=== PATIENT | female | born 1945 | race Caucasian/White ===

== ENCOUNTER 2016-07-07 11:43 | Outpatient (CLI) ==
[2016-07-07 13:19] LABS: FLU INTERNAL QC INTERNAL QC VALID; RAPID FLU A POSITIVE (NEGATIVE); RAPID FLU B NEGATIVE (NEGATIVE)
== END 2016-07-07 11:44 | disposition home or self-care (01) ==
LOC: LAB 11:43
PROVIDERS: ATTEND Nurse Practitioner Family
DX: R50.9 Fever, unspecified (principal)
CPT/HCPCS: 87651; 87804; 87880

== ENCOUNTER 2016-08-05 09:39 | Outpatient (CLI) ==
[2016-08-05 13:16] LABS: BASOPHILS # (AUTO) 0.1 K/uL (0-0.2); BASOPHILS % (AUTO) 0.9 % (0.0-3.0); EOSINOPHILS # (AUTO) 0.6 K/ul (0.0-0.7); EOSINOPHILS % (AUTO) 8.3 % (0.0-7.0); HEMATOCRIT 42.6 % (37.0-47.0); IMMATURE GRANULOCYTE % (AUTO) 0.2 % (0.0-5.0); LYMPHOCYTES # (AUTO) 2.4 K/uL (0.60-3.4); LYMPHOCYTES % (AUTO) 35.7 (10.0-50.0); MEAN CORPUSCULAR HEMOGLOBIN 28.9 pg (27.0-31.0); MEAN CORPUSCULAR HGB CONC 32.9 (31.8-35.4); MONOCYTES # (AUTO) 0.5 K/uL (0.4-2.0); MONOCYTES % (AUTO) 7.4 (0-10); NEUTROPHILS # (AUTO) 3.2 K/ul (2.0-6.9); NEUTROPHILS % (AUTO) 47.5; PLATELET COUNT 183 10^3/uL (140-440); RED BLOOD COUNT 4.84 10^6/ul (4.20-5.40); WHITE BLOOD COUNT 6.66 K/ul (4.6-10.2)
[2016-08-05 13:20] LABS: BILIRUBIN,URINE Negative (NEGATIVE); KETONES,URINE Negative (NEGATIVE); LEUKOCYTE ESTERASE ,URINE 1+ (NEGATIVE); NITRITE,URINE Negative (NEGATIVE); PROTEIN,URINE Negative (NEGATIVE); URINE, BLOOD Negative (NEGATIVE)
[2016-08-05 13:21] LABS: ADD URINE MICROSCOPIC YES
[2016-08-05 13:37] LABS: BACTERIA,URINE 2+ (NOT PRESENT)
[2016-08-05 13:38] LABS: BILIRUBIN,TOTAL 0.81 mg/dL (0.00-1.20); CALCIUM 9.2 mg/dL (8.2-10.2); CREATININE 0.83 mg/dL (0.60-1.30); POTASSIUM 3.9 mmol/L (3.5-5.10); TOTAL PROTEIN 7.2 g/dL (5.8-8.1)
[2016-08-05 13:44] LABS: CHOL/HDL RATIO 3.7 (4.5-5.5)
[2016-08-05 14:21] LABS: ALBUMIN 3.7 g/dL (3.4-5.0); ALBUMIN/GLOBULIN RATIO 1.06; ANION GAP 12.9; BUN/CREATININE RATIO 12.04
== END 2016-08-05 09:40 | disposition home or self-care (01) ==
LOC: LAB 09:39
PROVIDERS: ATTEND Emergency Medicine
DX: E11.51 Type 2 diabetes mellitus with diabetic peripheral angiopathy without gangrene (principal); E11.9 Type 2 diabetes mellitus without complications; I10 Essential (primary) hypertension; Z79.899 Other long term (current) drug therapy
CPT/HCPCS: 36415; 80053; 80061; 81001; 83036; 85025; 87086; 87186

== ENCOUNTER 2016-12-01 11:32 | Outpatient (CLI) ==
[2016-12-01 12:50] LABS: BASOPHILS # (AUTO) 0.1 K/uL (0-0.2); BASOPHILS % (AUTO) 1.1 % (0.0-3.0); EOSINOPHILS # (AUTO) 0.4 K/ul (0.0-0.7); HEMATOCRIT 41.2 % (37.0-47.0); HEMOGLOBIN 14.1 g/dl (12.0-16.0); IMMATURE GRANULOCYTE % (AUTO) 0.2 % (0.0-5.0); LYMPHOCYTES # (AUTO) 2.4 K/uL (0.60-3.4); LYMPHOCYTES % (AUTO) 39.8 (10.0-50.0); MEAN CORPUSCULAR HEMOGLOBIN 29.4 pg (27.0-31.0); MEAN CORPUSCULAR HGB CONC 34.2 (31.8-35.4); MEAN CORPUSCULAR VOLUME 85.8 fl (81.0-99.0); MONOCYTES # (AUTO) 0.4 K/uL (0.4-2.0); MONOCYTES % (AUTO) 6.4 (0-10); NEUTROPHILS # (AUTO) 2.8 K/ul (2.0-6.9); NEUTROPHILS % (AUTO) 45.5; PLATELET COUNT 191 10^3/uL (140-440); WHITE BLOOD COUNT 6.13 K/ul (4.6-10.2)
[2016-12-01 12:57] LABS: BILIRUBIN,URINE Negative (NEGATIVE); KETONES,URINE Negative (NEGATIVE); LEUKOCYTE ESTERASE ,URINE Trace (NEGATIVE); NITRITE,URINE Negative (NEGATIVE); PH,URINE 5.5 (5-9); PROTEIN,URINE Negative (NEGATIVE); URINE, BLOOD Negative (NEGATIVE)
[2016-12-01 12:58] LABS: ADD URINE MICROSCOPIC YES
[2016-12-01 13:02] LABS: ALBUMIN 3.7 g/dL (3.4-5.0); ALBUMIN/GLOBULIN RATIO 1.12; ANION GAP 20.6; BILIRUBIN,TOTAL 0.67 mg/dL (0.00-1.20); BUN/CREATININE RATIO 12.79; CHOL/HDL RATIO 3.5 (4.5-5.5); CREATININE 0.86 mg/dL (0.60-1.30); POTASSIUM 3.6 mmol/L (3.5-5.10)
== END 2016-12-01 11:33 | disposition home or self-care (01) ==
LOC: LAB 11:32
PROVIDERS: ATTEND General Practice
DX: E11.9 Type 2 diabetes mellitus without complications (principal); I10 Essential (primary) hypertension; Z79.899 Other long term (current) drug therapy
CPT/HCPCS: 36415; 80053; 80061; 81001; 83036; 85025

== ENCOUNTER 2017-01-05 12:51 | Outpatient (CLI) | payer OTHER ==
[2017-01-05 13:21] LABS: ALBUMIN 3.9 g/dL (3.4-5.0); ANION GAP 16.5; BUN/CREATININE RATIO 16.04; CALCIUM 9.6 mg/dL (8.2-10.2); CREATININE 0.81 mg/dL (0.60-1.30); POTASSIUM 3.5 mmol/L (3.5-5.10)
== END 2017-01-05 12:52 | disposition home or self-care (01) ==
LOC: LAB 12:51
PROVIDERS: ATTEND General Practice
DX: E11.9 Type 2 diabetes mellitus without complications (principal)
CPT/HCPCS: 36415; 80069; 83036

== ENCOUNTER 2017-06-29 09:59 | Outpatient (CLI) | END 2017-06-29 10:00 | disposition home or self-care (01) | LOC: LAB 09:59 | PROVIDERS: ATTEND General Practice | DX: E11.9 Type 2 diabetes mellitus without complications (principal); I10 Essential (primary) hypertension; Z79.899 Other long term (current) drug therapy | CPT/HCPCS: 36415; 80053; 80061; 81001; 83036; 85025 ==

== ENCOUNTER 2017-07-06 16:40 | Outpatient (CLI) | payer OTHER ==
--- NOTE | 2017-07-06 17:23 | DI ---
Exam: Lumbar spine complete with obliques. HISTORY: Low back pain with bilateral lower extremity pain. Findings: Anterior, lateral, coned-down and bilateral oblique images of the lumbar spine are submitt ed. These demonstrate five [id number], lumbarized vertebrae with no compression fracture. Ther e is multilevel mild degenerative disc disease which appears greatest at L2-3 and L1-2, and multileve l moderate degenerative facet arthropathy. 6 mm anterolisthesis of L4 on L5 is noted. Atherosclerot ic calcifications are noted. And moderate amount of stools noted throughout the nondilated colon. Impressions: Mild to moderate degenerative disc and facet arthropathy with no compression fracture i n the lumbar spine. 6 mm anterolisthesis of L4 on L5. Atherosclerosis.
== END 2017-07-06 16:41 | disposition home or self-care (01) ==
LOC: RAD 16:40
PROVIDERS: ATTEND General Practice
DX: M54.17 Radiculopathy, lumbosacral region (principal)

== ENCOUNTER 2017-07-13 08:55 | Outpatient (CLI) | payer OTHER ==
--- NOTE | 2017-07-13 09:49 | CT ---
EXAM: CT lumbar spine without contrast. HISTORY: Lower back pain COMPARISON: Lumbar spine x-ray 07/06/2017 TECHNIQUE: Serial axial images of the spine were obtained from the lower thoracic spine through the pelvis without contrast. These were viewed in multiple planes. FINDINGS: Vertebral bodies demonstrate no acute compression fracture or subluxation. There is 0.2 c m of anterolisthesis of L4 on L5. There is mild anterior disc osteophytes. Facets demonstrate mild s cattered degenerative disease and arthropathy. There is no lytic or blastic lesion. L1-L2: Small broad-based disc bulge with no central or neural foraminal narrowing. L2-L3: Mild degenerative change and facet arthropathy with no central or neural foraminal narrowing. L3-L4: There is a broad-based disc bulge with no central or neural foraminal narrowing. L4-L5: Minimal anterolisthesis with facet arthropathy with mild central and neural foraminal narrowin g. L5-S1: Broad-based disc bulge and facet arthropathy with bilateral moderate neural foraminal narrowin g. Limited views of the soft tissues are unremarkable. There is mild diverticulosis. IMPRESSION: 1. No acute compression fracture with minimal anterolisthesis of L4 on L5. 2. Multilevel degenerative disease with no greater than moderate neural foraminal and mild central n arrowing at any level. If further evaluation is indicated, MRI may be obtained.
== END 2017-07-13 08:56 | disposition home or self-care (01) ==
LOC: RAD 08:55
PROVIDERS: ATTEND General Practice
DX: M54.17 Radiculopathy, lumbosacral region (principal)

== ENCOUNTER 2017-10-28 10:12 | Outpatient (CLI) | END 2017-10-28 10:13 | disposition home or self-care (01) | LOC: FCC-LAB 10:12 | PROVIDERS: ATTEND General Practice | DX: E11.9 Type 2 diabetes mellitus without complications (principal); I10 Essential (primary) hypertension; Z79.899 Other long term (current) drug therapy | CPT/HCPCS: 36415; 80053; 80061; 81001; 83036; 85025; 87086 ==

== ENCOUNTER 2018-03-01 13:55 | Outpatient (CLI) | payer OTHER | END 2018-03-01 13:56 | disposition home or self-care (01) | LOC: FCC-LAB 13:55 | PROVIDERS: ATTEND General Practice | DX: R73.09 Other abnormal glucose (principal); E11.9 Type 2 diabetes mellitus without complications; Z79.899 Other long term (current) drug therapy | CPT/HCPCS: 36415; 80053; 81001; 83036; 85025 ==

== ENCOUNTER 2018-04-05 08:43 | Outpatient (CLI) | payer OTHER | END 2018-04-05 08:44 | disposition home or self-care (01) | LOC: RHC-LAB 08:43 | PROVIDERS: ATTEND General Practice | DX: E11.9 Type 2 diabetes mellitus without complications (principal); I10 Essential (primary) hypertension; Z79.899 Other long term (current) drug therapy | CPT/HCPCS: 36415; 80053; 80061; 83036; 85025 ==

== ENCOUNTER 2018-06-09 08:00 | Outpatient (CLI) | payer OTHER | END 2018-06-09 08:01 | disposition home or self-care (01) | LOC: RHC-LAB 08:00 | PROVIDERS: ATTEND General Practice | DX: E11.9 Type 2 diabetes mellitus without complications (principal); Z79.899 Other long term (current) drug therapy | CPT/HCPCS: 36415; 80053; 80061; 81001; 83036; 85007; 85025; 87086 ==

== ENCOUNTER 2018-10-04 08:38 | Outpatient (CLI) | END 2018-10-04 08:39 | disposition home or self-care (01) | LOC: RHC-LAB 08:38 | PROVIDERS: ATTEND General Practice | DX: E11.9 Type 2 diabetes mellitus without complications (principal); I10 Essential (primary) hypertension; Z79.899 Other long term (current) drug therapy | CPT/HCPCS: 36415; 80053; 80061; 81001; 83036; 85025; 87086; 87186 ==

== ENCOUNTER 2018-10-25 15:15 | Outpatient (CLI) | END 2018-10-25 15:16 | disposition home or self-care (01) | LOC: RHC-LAB 15:15 | PROVIDERS: ATTEND General Practice | DX: R19.7 Diarrhea, unspecified (principal); L65.9 Nonscarring hair loss, unspecified | CPT/HCPCS: 36415; 84443 ==

== ENCOUNTER 2019-01-03 06:48 | Day surgery (SDC) ==
[2019-01-03] MEDS ORDERED: LIDOCAINE 1% 20 ML MDV ID ONE (06:58)
[2019-01-03] MEDS ORDERED: LIDOCAINE 1% 20 ML MDV ID STA (07:12)
[2019-01-03] MEDS ORDERED: DIPRIVAN 20 ML VIAL IVP ONE (08:30)
[2019-01-03 09:39] VITALS: BP 167/73; TEMP 97.2
--- NOTE | 2019-01-04 10:36 | OP ---
INDICATIONS FOR PROCEDURE: 73-year-old female presents for colonoscopy exam. She is scheduled for a screening examination with family history of colon polyps. The patient herself has history of hyperplastic polyps. She was experiencing some diarrhea but she tells me that has improved. MEDICATIONS: SEE ANESTHESIA NOTES. PROCEDURE: COLONOSCOPY, SNARE POLYPECTOMY. REPORT: The risks, benefits, alternatives and limitations were discussed in detail with the patient. Informed consent was obtained. After adequate sedation was achieved, a digital rectal exam revealed good tone, no masses. The colonoscope was introduced into the rectum and advanced under direct visual guidance to the cecum. The cecum was identified by the appendiceal orifice and IC valve. I then slowly withdrew the scope in circumferential manner examining the mucosa quite carefully. I looked on the proximal and distal side of folds and flexures as best as possible. I was able to retroflex the scope in the right colon and the left colon to increase visualization. In the proximal transverse colon there were two diminutive polyps that were sessile. Both of these polyps were removed and destroyed by snare technique. Scattered throughout the sigmoid there is a small amount of diverticuli. No other abnormalities were noted including on retroflex view of the anal canal. The prep was good. The withdrawal time was 7 minutes and 54 seconds. The patient tolerated the procedure well with stable vital signs and pulse oximetry throughout. IMPRESSION: 1. TWO (2) DIMINUTIVE POLYPS DESTROYED. 2. SCATTERED SIGMOID DIVERTICULOSIS. RECOMMENDATIONS: 1. High fiber diet. 2. Office visit as needed. 3. Repeat colonoscopy examination again in 5 years, sooner if there are any signs or symptoms to indicate otherwise. cc: Dr. Ambreen BROWN
== END 2019-01-03 09:38 | disposition home or self-care (01) ==
LOC: SURG 06:48
PROVIDERS: ATTEND Internal Medicine Gastroenterology
DX: R19.7 Diarrhea, unspecified (principal); K63.5 Polyp of colon; K57.90 Diverticulosis of intestine, part unspecified, without perforation or abscess without bleeding; Z80.0 Family history of malignant neoplasm of digestive organs

== ENCOUNTER 2022-01-08 14:32 | Observation (INO) ==
[2022-01-08] MEDS ORDERED: SODIUM CHLORIDE 1,000 ML IV STA (14:42)
[2022-01-08] MEDS ORDERED: ZOFRAN 4 MG/2 ML IVP ONE (14:42)
--- NOTE | 2022-01-08 14:47 | ED.PDOC ---
General <CARMENCITA HAINES MD - Last Filed: 01/08/22 18:30> ED Provider: Dr. CARMENCITA HAINES MD Chief Complaint: Urinary Problem Stated Complaint: mild to mod off and on [place] for one day, no abdominal pain, seen recently for uti, hx dm, covid vaccine, htn and cardiac stent, no hx IN, no fe kristian, +body aches and general fatigue Time Seen by Provider: 01/08/22 14:34 Mode of Arrival: Walk-In Information Source: Patient Primary Care Provider: LYNETTE MIRZA MD Sepsis Protocol: For patient's 13 years and over: Temp is 96.8 and below OR 101 and greater Pulse >90 BPM Resp >20/minute Acutely Altered Mental Status Are patient's symptoms suggestive of a new infection, such as: -Pneumonia -Skin, Soft Tissue -Endocarditis -UTI -Bone, Joint Infection -Implantable Device -Acute Abdominal Infection -Wound Infection -Meningitis -Blood Stream Catheter Infection -Unknown <ADWOA MAGANA MD - Last Filed: 01/08/22 22:52> Nursing and Triage Documentation Reviewed and Agree: Yes Does patient meet sepsis criteria?: No System Inflammatory Response Syndrome: Not Applicable Review of Systems <CARMENCITA HAINES MD - Last Filed: 01/08/22 18:30> Review Of Systems Constitutional: Reports Malaise and Weakness; Denies Fever Eyes: Denies Vision change Ears, Nose, Mouth, Throat: Denies Throat pain Respiratory: Reports Cough; Denies Short of air, Stridor or Wheezing Cardiac: Denies Chest pain GI: Reports Nausea and Vomiting; Denies Abdominal pain : Reports Frequency Musculoskeletal: Reports Muscle pain Skin: Denies Bruising, Rash or Cyanosis Neurological: Denies Cognitive dysfunction All Other Systems: Other PFSH <CARMENCITA HAINES MD - Last Filed: 01/08/22 18:30> Medical History Diabetes mellitus Diabetes mellitus type 2, controlled, without complications Dyslipidemia Encounter to discuss test results Hyperlipidemia Hyperlipidemia Hypertension Hypertriglyceridemia Needs flu shot Sinusitis Upper respiratory infection, viral Family History BROTHER Diabetes Heart attack Hypertension SISTER Diabetes Heart attack Hypertension Mother Diabetes Heart attack Hypertension FATHER Heart attack Hypertension Social History Smoking and tobacco status: Unknown if ever smoked Passive smoking exposure: No Second hand smoke exposure: No Smoking risk assessment performed: No Substance use type: does not use Counseling given: No Krysta/evangelical: [employer]EW[employer] [place] Special krysta needs: No Agree to transfusion: Yes Household members: spouse Marital status: M Lives independently: Yes Daycare: no daycare Number of children: 8 Number of grandchildren: 5 Current occupational status: employed Sexually active: Yes Do you think of yourself as: straight/heterosexual Current gender identity: female Seatbelt use: always Surgical History History of heart artery stent Status post appendectomy Status post hysterectomy Female Reproductive History Menstrual Hx Hysterectomy: Yes Hx Tubal Ligation: No Physical Exam <CARMENCITA HAINES MD - Last Filed: 01/08/22 18:30> Physical Exam Appearance: Reports No pain distress Ill-appearing: None Pain Distress: None Eyes: Reports CATHLEEN, EOMI and Conjunctiva clear ENT: Reports Oropharynx normal; Denies Rhinorrhea Neck: Supple Respiratory: Reports Airway patent, Breath sounds clear and Breath sounds equal Cardiovascular: Reports RRR GI/: Reports Soft and Nontender Musculoskeletal: Reports ROM intact and No edema Skin: Reports Warm and Dry Neurological: Reports Alert and Oriented Psychiatric: Reports Affect appropriate Interpretation <CARMENCITA HAINES MD - Last Filed: 01/08/22 18:30> EKG Interpretation Time of EKG #1: 18:29 Rate: Normal Rhythm: Sinus Interpretation: no stemi Time of EKG #2: 18:29 Rate: Normal Rhythm: Sinus EKG Interpretation: no waveform change no stemi <ADWOA MAGANA MD - Last Filed: 01/08/22 22:52> Critical Care Note Total Critical Care Time (mins): 0 Course <CARMENCITA HAINES MD - Last Filed: 01/08/22 18:30> Course Hematology/Chemistry: 01/08/22 14:56 01/08/22 14:56 Orders, Labs, Meds: Lab Review 01/08/22 01/08/22 01/08/22 14:56 14:56 14:56 WBC 11.79 H RBC 4.46 Hgb 12.8 Hct 38.3 MCV 85.9 MCH 28.7 MCHC 33.4 RDW Coeff of Sandra 12.8 Plt Count 216 Immature Gran % (Auto) 0.7 Neut % (Auto) 70.5 Lymph % (Auto) 17.2 [place] % (Auto) 10.9 H Eos % (Auto) 0.3 Baso % (Auto) 0.4 Neut # (Auto) 8.3 H Lymph # (Auto) 2.0 [place] # (Auto) 1.3 Eos # (Auto) 0.0 Baso # (Auto) 0.1 Immature Gran # (Auto) 0.1 Puncture Site Base Excess O2 Saturation ABG pH ABG pCO2 ABG pO2 ABG HCO3 ABG Total CO2 Pratik Test Hemoglobin Oxyhemoglobin Carboxyhemoglobin Total Hemoglobin FiO2 % Sodium 137.4 Potassium 3.53 Chloride 100.0 Carbon Dioxide 27.2 Anion Gap 13.73 BUN 13.8 Creatinine 0.78 Estimated GFR (MDRD) 72.00 BUN/Creatinine Ratio 17.69 Glucose 227.8 H D Lactic Acid 2.03 Calcium 9.61 Total Bilirubin 0.72 AST 19.9 ALT 20.9 Alkaline Phosphatase 116.5 Troponin I 0.021 Total Protein 7.63 Albumin 3.85 Globulin 3.78 Albumin/Globulin Ratio 1.01 Lipase 41.3 Urine Color Urine Clarity Urine pH Ur Specific [place] Urine Protein Urine Glucose (UA) Urine Ketones Urine Blood Urine Nitrite Urine Bilirubin Urine Urobilinogen Ur Leukocyte Esterase Urine Microscopic RBC Urine Microscopic WBC Ur Squamous Epith Cells Urine Bacteria Hyaline Casts Granular Casts SARS CoV-2 RNA Rapid LINH 01/08/22 01/08/22 01/08/22 14:56 14:58 16:05 WBC RBC Hgb Hct MCV MCH MCHC RDW Coeff of Sandra Plt Count Immature Gran % (Auto) Neut % (Auto) Lymph % (Auto) [place] % (Auto) Eos % (Auto) Baso % (Auto) Neut # (Auto) Lymph # (Auto) [place] # (Auto) Eos # (Auto) Baso # (Auto) Immature Gran # (Auto) Puncture Site Rr Base Excess 1.8 O2 Saturation 92.1 L ABG pH 7.48 H ABG pCO2 34.0 L ABG pO2 59.0 L* ABG HCO3 25.3 ABG Total CO2 26.3 H Pratik Test Pos Hemoglobin 0.9 Oxyhemoglobin 90.8 L Carboxyhemoglobin 2.6 H Total Hemoglobin 12.0 FiO2 % 21.0 Sodium Potassium Chloride Carbon Dioxide Anion Gap BUN Creatinine Estimated GFR (MDRD) BUN/Creatinine Ratio Glucose Lactic Acid Calcium Total Bilirubin AST ALT Alkaline Phosphatase Troponin I Total Protein Albumin Globulin Albumin/Globulin Ratio Lipase Urine Color Yellow Urine Clarity Slightly Urine pH 5.0 Ur Specific [place] >=1.030 Urine Protein 2+ H Urine Glucose (UA) 2+ H Urine Ketones 1+ H Urine Blood 1+ H Urine Nitrite Negative Urine Bilirubin Negative Urine Urobilinogen 4.0 H Ur Leukocyte Esterase Trace H Urine Microscopic RBC 5-10 Urine Microscopic WBC 5-10 Ur Squamous Epith Cells 2-5 Urine Bacteria 3+ Hyaline Casts 0-2 Granular Casts 0-2 SARS CoV-2 RNA Rapid LINH Negative 01/08/22 16:30 WBC RBC Hgb Hct MCV MCH MCHC RDW Coeff of Sandra Plt Count Immature Gran % (Auto) Neut % (Auto) Lymph % (Auto) [place] % (Auto) Eos % (Auto) Baso % (Auto) Neut # (Auto) Lymph # (Auto) [place] # (Auto) Eos # (Auto) Baso # (Auto) Immature Gran # (Auto) Puncture Site Base Excess O2 Saturation ABG pH ABG pCO2 ABG pO2 ABG HCO3 ABG Total CO2 Pratik Test Hemoglobin Oxyhemoglobin Carboxyhemoglobin Total Hemoglobin FiO2 % Sodium Potassium Chloride Carbon Dioxide Anion Gap BUN Creatinine Estimated GFR (MDRD) BUN/Creatinine Ratio Glucose Lactic Acid Calcium Total Bilirubin AST ALT Alkaline Phosphatase Troponin I 0.022 Total Protein Albumin Globulin Albumin/Globulin Ratio Lipase Urine Color Urine Clarity Urine pH Ur Specific [place] Urine Protein Urine Glucose (UA) Urine Ketones Urine Blood Urine Nitrite Urine Bilirubin Urine Urobilinogen Ur Leukocyte Esterase Urine Microscopic RBC Urine Microscopic WBC Ur Squamous Epith Cells Urine Bacteria Hyaline Casts Granular Casts SARS CoV-2 RNA Rapid LINH Orders Category Date Time Status ABG DRAW REQUEST Stat CARDIO 01/08/22 14:42 Completed EKG-(ED ONLY) Stat CARDIO 01/08/22 14:42 Completed EKG-(ED ONLY) Stat CARDIO 01/08/22 16:22 Completed METERED DOSE INHALATION Routine CARDIO 01/08/22 15:27 Completed OXYGEN Routine CARDIO 01/08/22 14:42 Ordered NPO REMINDER: IMAGING ONCE CARE 01/08/22 19:34 Completed ABG COOX Stat LAB 01/08/22 14:58 Completed BLOOD CULTURE (ED ONLY) Stat LAB 01/08/22 22:20 Received CBC W/ AUTO DIFF Stat LAB 01/08/22 14:56 Completed CMP [COMPREHENSIVE METABOLIC PANEL] Stat LAB 01/08/22 14:56 Completed LACTIC ACID Stat LAB 01/08/22 14:56 Completed LIPASE Stat LAB 01/08/22 14:56 Completed SARS COV-2 RNA RAPID LINH Stat LAB 01/08/22 14:56 Completed TROPONIN I Stat LAB 01/08/22 14:56 Completed TROPONIN I Stat LAB 01/08/22 16:30 Completed URINALYSIS C & S IF INDICATED Stat LAB 01/08/22 16:05 Completed URINE CULTURE Stat LAB 01/08/22 16:05 Received Albuterol Inhaler(with Spacer) [Ventolin Hfa (Per Puff- MEDS 01/08/22 15:26 Discontinued with Spacer)] 2 puff IH ONCE ONE Levofloxacin/D5w [Levaquin 750 mg/150 ml D5w] MEDS 01/08/22 22:15 Active 750 mg in 150 ml IV ONCE Methylprednisolone Sod Succ/Pf [Solu-Medrol 125 mg] MEDS 01/08/22 15:26 Discontinued 125 mg IVP ONCE STA Ondansetron HCl/Pf [Zofran 4 mg/2 ml] MEDS 01/08/22 14:42 Discontinued 4 mg IVP ONCE ONE Ringers Lactated Solution [Lactated Ringers] 1,000 ml MEDS 01/08/22 19:34 Discontinued IV BOLUS Sodium Chloride 0.9% [Sodium Chloride] 1,000 ml MEDS 01/08/22 14:42 Discontinued IV BOLUS CHEST, 1V AP ONLY Stat RADS 01/08/22 14:[address] ABDOMEN/PELVIS WO CONTRAST Stat RADS 01/08/22 18:[address] CHEST PE PROTOCOL Stat RADS 01/08/22 19:29 Completed Medications Generic Name Dose Route Start Last Admin Trade Name Freq PRN Reason Stop Dose Admin Acetaminophen 650 mg 01/08/22 22:38 Acetaminophen 325 Mg Tablet PO Q4H PRN Fever and Mild Pain Albuterol/Ipratropium 3 ml 01/09/22 06:00 Ipratropium/Albuterol Vial.Neb NEB RTQID [facility] Amlodipine Besylate 5 mg 01/08/22 23:00 Amlodipine Besylate 5 Mg Tablet PO QDAY [facility] Aspirin 81 mg 01/09/22 09:00 Aspirin 81 Mg Tablet. PO DAILY [facility] Cholecalciferol unit 01/09/22 09:00 Cholecalciferol (Vitamin D3) 1,000 Unit (25 Mcg) Tablet PO DAILY [facility] Enoxaparin Sodium 40 mg 01/09/22 09:00 Enoxaparin Sodium 40 Mg/0.4 Ml Syr SUBCUT DAILY [facility] Fluticasone Propionate 2 spray 01/08/22 23:00 Fluticasone Propionate 16 Gm Nasal [place] NATALY QDAY [facility] Levofloxacin/Dextrose 750 mg in 150 mls @ 100 mls/hr 01/08/22 22:15 01/08/22 22:25 Levaquin 750 Mg/150 Ml D5w IV 01/08/22 23:44 100 mls/hr ONCE STA Administration Sodium Chloride 1,000 mls @ 125 mls/hr 01/08/22 23:00 Sodium Chloride IV .Q8H [facility] Levofloxacin/Dextrose 500 mg in 100 mls @ 100 mls/hr 01/09/22 09:00 Levaquin 500 Mg/100 Ml D5w IV 01/12/22 08:59 DAILY [facility] Insulin Human Regular 0 unit 01/08/22 22:43 Insulin Regular, Human 100 Unit/Ml (3ml) Vial SUBCUT PRN PRN Hyperglycemia Protocol Lisinopril 10 mg 01/08/22 23:00 Lisinopril 10 Mg Tablet PO QDAY [facility] Methylprednisolone Sodium Succinate 125 mg 01/08/22 23:00 Methylprednisolone Sod Succ/Pf 125 Mg/2 Ml Vial IVP Q6HR [facility] Metoprolol Succinate 25 mg 01/09/22 09:00 Metoprolol Succinate 25 Mg Tab.Er.24h PO DAILY [facility] Ondansetron HCl 4 mg 01/08/22 22:38 Ondansetron Hcl/Pf 4 Mg/2 Ml Sdv IVP Q6H PRN Nausea / Vomiting Rosuvastatin Calcium 10 mg 01/08/22 23:00 Rosuvastatin Calcium 10 Mg Tablet PO QDAY [facility] Discontinued Medications Generic Name Dose Route Start Last Admin Trade Name Freq PRN Reason Stop Dose Admin Albuterol Sulfate 2 puff 01/08/22 15:26 01/08/22 15:38 Albuterol Sulfate (Ventolin Hfa) 18 Gm 1 Puff With Spacer IH 01/08/22 15:27 2 puff ONCE ONE Administration Sodium Chloride 1,000 mls @ 1,000 mls/hr 01/08/22 14:42 01/08/22 14:51 Sodium Chloride IV 01/08/22 15:41 1,000 mls/hr BOLUS STA Administration Lactated Ringer's 1,000 mls @ 1,000 mls/hr 01/08/22 19:34 01/08/22 19:49 Lactated Ringers IV 01/08/22 20:33 1,000 mls/hr BOLUS STA Administration Methylprednisolone Sodium Succinate 125 mg 01/08/22 15:26 01/08/22 15:38 Methylprednisolone Sod Succ/Pf 125 Mg/2 Ml Vial IVP 01/08/22 15:27 125 mg ONCE STA Administration Ondansetron HCl 4 mg 01/08/22 14:42 01/08/22 14:52 Ondansetron Hcl/Pf 4 Mg/2 Ml Sdv IVP 01/08/22 14:43 4 mg ONCE ONE Administration Vital Signs: Temp Pulse Resp BP Pulse Ox 01/08/22 14:33 97.9 F 100 H 20 174/65 H 90 L <ADWOA MAGANA MD - Last Filed: 01/08/22 22:52> Course Orders, Labs, Meds: Lab Review 01/08/22 01/08/22 01/08/22 14:56 14:56 14:56 WBC 11.79 H RBC 4.46 Hgb 12.8 Hct 38.3 MCV 85.9 MCH 28.7 MCHC 33.4 RDW Coeff of Sandra 12.8 Plt Count 216 Immature Gran % (Auto) 0.7 Neut % (Auto) 70.5 Lymph % (Auto) 17.2 [place] % (Auto) 10.9 H Eos % (Auto) 0.3 Baso % (Auto) 0.4 Neut # (Auto) 8.3 H Lymph # (Auto) 2.0 [place] # (Auto) 1.3 Eos # (Auto) 0.0 Baso # (Auto) 0.1 Immature Gran # (Auto) 0.1 Puncture Site Base Excess O2 Saturation ABG pH ABG pCO2 ABG pO2 ABG HCO3 ABG Total CO2 Pratik Test Hemoglobin Oxyhemoglobin Carboxyhemoglobin Total Hemoglobin FiO2 % Sodium 137.4 Potassium 3.53 Chloride 100.0 Carbon Dioxide 27.2 Anion Gap 13.73 BUN 13.8 Creatinine 0.78 Estimated GFR (MDRD) 72.00 BUN/Creatinine Ratio 17.69 Glucose 227.8 H D Lactic Acid 2.03 Calcium 9.61 Total Bilirubin 0.72 AST 19.9 ALT 20.9 Alkaline Phosphatase 116.5 Troponin I 0.021 Total Protein 7.63 Albumin 3.85 Globulin 3.78 Albumin/Globulin Ratio 1.01 Lipase 41.3 Urine Color Urine Clarity Urine pH Ur Specific [place] Urine Protein Urine Glucose (UA) Urine Ketones Urine Blood Urine Nitrite Urine Bilirubin Urine Urobilinogen Ur Leukocyte Esterase Urine Microscopic RBC Urine Microscopic WBC Ur Squamous Epith Cells Urine Bacteria Hyaline Casts Granular Casts SARS CoV-2 RNA Rapid LINH 01/08/22 01/08/22 01/08/22 14:56 14:58 16:05 WBC RBC Hgb Hct MCV MCH MCHC RDW Coeff of Sandra Plt Count Immature Gran % (Auto) Neut % (Auto) Lymph % (Auto) [place] % (Auto) Eos % (Auto) Baso % (Auto) Neut # (Auto) Lymph # (Auto) [place] # (Auto) Eos # (Auto) Baso # (Auto) Immature Gran # (Auto) Puncture Site Rr Base Excess 1.8 O2 Saturation 92.1 L ABG pH 7.48 H ABG pCO2 34.0 L ABG pO2 59.0 L* ABG HCO3 25.3 ABG Total CO2 26.3 H Pratik Test Pos Hemoglobin 0.9 Oxyhemoglobin 90.8 L Carboxyhemoglobin 2.6 H Total Hemoglobin 12.0 FiO2 % 21.0 Sodium Potassium Chloride Carbon Dioxide Anion Gap BUN Creatinine Estimated GFR (MDRD) BUN/Creatinine Ratio Glucose Lactic Acid Calcium Total Bilirubin AST ALT Alkaline Phosphatase Troponin I Total Protein Albumin Globulin Albumin/Globulin Ratio Lipase Urine Color Yellow Urine Clarity Slightly Urine pH 5.0 Ur Specific [place] >=1.030 Urine Protein 2+ H Urine Glucose (UA) 2+ H Urine Ketones 1+ H Urine Blood 1+ H Urine Nitrite Negative Urine Bilirubin Negative Urine Urobilinogen 4.0 H Ur Leukocyte Esterase Trace H Urine Microscopic RBC 5-10 Urine Microscopic WBC 5-10 Ur Squamous Epith Cells 2-5 Urine Bacteria 3+ Hyaline Casts 0-2 Granular Casts 0-2 SARS CoV-2 RNA Rapid LINH Negative 01/08/22 16:30 WBC RBC Hgb Hct MCV MCH MCHC RDW Coeff of Sandra Plt Count Immature Gran % (Auto) Neut % (Auto) Lymph % (Auto) [place] % (Auto) Eos % (Auto) Baso % (Auto) Neut # (Auto) Lymph # (Auto) [place] # (Auto) Eos # (Auto) Baso # (Auto) Immature Gran # (Auto) Puncture Site Base Excess O2 Saturation ABG pH ABG pCO2 ABG pO2 ABG HCO3 ABG Total CO2 Pratik Test Hemoglobin Oxyhemoglobin Carboxyhemoglobin Total Hemoglobin FiO2 % Sodium Potassium Chloride Carbon Dioxide Anion Gap BUN Creatinine Estimated GFR (MDRD) BUN/Creatinine Ratio Glucose Lactic Acid Calcium Total Bilirubin AST ALT Alkaline Phosphatase Troponin I 0.022 Total Protein Albumin Globulin Albumin/Globulin Ratio Lipase Urine Color Urine Clarity Urine pH Ur Specific [place] Urine Protein Urine Glucose (UA) Urine Ketones Urine Blood Urine Nitrite Urine Bilirubin Urine Urobilinogen Ur Leukocyte Esterase Urine Microscopic RBC Urine Microscopic WBC Ur Squamous Epith Cells Urine Bacteria Hyaline Casts Granular Casts SARS CoV-2 RNA Rapid LINH Orders Category Date Time Status ABG DRAW REQUEST Stat CARDIO 01/08/22 14:42 Completed EKG-(ED ONLY) Stat CARDIO 01/08/22 14:42 Completed EKG-(ED ONLY) Stat CARDIO 01/08/22 16:22 Completed METERED DOSE INHALATION Routine CARDIO 01/08/22 15:27 Completed OXYGEN Routine CARDIO 01/08/22 14:42 Ordered NPO REMINDER: IMAGING ONCE CARE 01/08/22 19:34 Completed ABG COOX Stat LAB 01/08/22 14:58 Completed BLOOD CULTURE (ED ONLY) Stat LAB 01/08/22 22:20 Received CBC W/ AUTO DIFF Stat LAB 01/08/22 14:56 Completed CMP [COMPREHENSIVE METABOLIC PANEL] Stat LAB 01/08/22 14:56 Completed LACTIC ACID Stat LAB 01/08/22 14:56 Completed LIPASE Stat LAB 01/08/22 14:56 Completed SARS COV-2 RNA RAPID LINH Stat LAB 01/08/22 14:56 Completed TROPONIN I Stat LAB 01/08/22 14:56 Completed TROPONIN I Stat LAB 01/08/22 16:30 Completed URINALYSIS C & S IF INDICATED Stat LAB 01/08/22 16:05 Completed URINE CULTURE Stat LAB 01/08/22 16:05 Received Albuterol Inhaler(with Spacer) [Ventolin Hfa (Per Puff- MEDS 01/08/22 15:26 Discontinued with Spacer)] 2 puff IH ONCE ONE Levofloxacin/D5w [Levaquin 750 mg/150 ml D5w] MEDS 01/08/22 22:15 Active 750 mg in 150 ml IV ONCE Methylprednisolone Sod Succ/Pf [Solu-Medrol 125 mg] MEDS 01/08/22 15:26 Di scontinued 125 mg IVP ONCE STA Ondansetron HCl/Pf [Zofran 4 mg/2 ml] MEDS 01/08/22 14:42 Discontinued 4 mg IVP ONCE ONE Ringers Lactated Solution [Lactated Ringers] 1,000 ml MEDS 01/08/22 19:34 Discontinued IV BOLUS Sodium Chloride 0.9% [Sodium Chloride] 1,000 ml MEDS 01/08/22 14:42 Discontinued IV BOLUS CHEST, 1V AP ONLY Stat RADS 01/08/22 14:[address] ABDOMEN/PELVIS WO CONTRAST Stat RADS 01/08/22 18:[address] CHEST PE PROTOCOL Stat RADS 01/08/22 19:29 Completed Medications Generic Name Dose Route Start Last Admin Trade Name Freq PRN Reason Stop Dose Admin Acetaminophen 650 mg 01/08/22 22:38 Acetaminophen 325 Mg Tablet PO Q4H PRN Fever and Mild Pain Albuterol/Ipratropium 3 ml 01/09/22 06:00 Ipratropium/Albuterol Vial.Neb NEB RTQID [facility] Amlodipine Besylate 5 mg 01/08/22 23:00 Amlodipine Besylate 5 Mg Tablet PO QDAY [facility] Aspirin 81 mg 01/09/22 09:00 Aspirin 81 Mg Tablet. PO DAILY [facility] Cholecalciferol unit 01/09/22 09:00 Cholecalciferol (Vitamin D3) 1,000 Unit (25 Mcg) Tablet PO DAILY [facility] Enoxaparin Sodium 40 mg 01/09/22 09:00 Enoxaparin Sodium 40 Mg/0.4 Ml Syr SUBCUT DAILY [facility] Fluticasone Propionate 2 spray 01/08/22 23:00 Fluticasone Propionate 16 Gm Nasal [place] NATALY QDAY ETH[facility] Levofloxacin/Dextrose 750 mg in 150 mls @ 100 mls/hr 01/08/22 22:15 01/08/22 22:25 Levaquin 750 Mg/150 Ml D5w IV 01/08/22 23:44 100 mls/hr ONCE STA Administration Sodium Chloride 1,000 mls @ 125 mls/hr 01/08/22 23:00 Sodium Chloride IV .Q8H [facility] Levofloxacin/Dextrose 500 mg in 100 mls @ 100 mls/hr 01/09/22 09:00 Levaquin 500 Mg/100 Ml D5w IV 01/12/22 08:59 DAILY [facility] Insulin Human Regular 0 unit 01/08/22 22:43 Insulin Regular, Human 100 Unit/Ml (3ml) Vial SUBCUT PRN PRN Hyperglycemia Protocol Lisinopril 10 mg 01/08/22 23:00 Lisinopril 10 Mg Tablet PO QDAY [facility] Methylprednisolone Sodium Succinate 125 mg 01/08/22 23:00 Methylprednisolone Sod Succ/Pf 125 Mg/2 Ml Vial IVP Q6HR [facility] Metoprolol Succinate 25 mg 01/09/22 09:00 Metoprolol Succinate 25 Mg Tab.Er.24h PO DAILY [facility] Ondansetron HCl 4 mg 01/08/22 22:38 Ondansetron Hcl/Pf 4 Mg/2 Ml Sdv IVP Q6H PRN Nausea / Vomiting Rosuvastatin Calcium 10 mg 01/08/22 23:00 Rosuvastatin Calcium 10 Mg Tablet PO QDAY [facility] Discontinued Medications Generic Name Dose Route Start Last Admin Trade Name Freq PRN Reason Stop Dose Admin Albuterol Sulfate 2 puff 01/08/22 15:26 01/08/22 15:38 Albuterol Sulfate (Ventolin Hfa) 18 Gm 1 Puff With Spacer IH 01/08/22 15:27 2 puff ONCE ONE Administration Sodium Chloride 1,000 mls @ 1,000 mls/hr 01/08/22 14:42 01/08/22 14:51 Sodium Chloride IV 01/08/22 15:41 1,000 mls/hr BOLUS STA Administration Lactated Ringer's 1,000 mls @ 1,000 mls/hr 01/08/22 19:34 01/08/22 19:49 Lactated Ringers IV 01/08/22 20:33 1,000 mls/hr BOLUS STA Administration Methylprednisolone Sodium Succinate 125 mg 01/08/22 15:26 01/08/22 15:38 Methylprednisolone Sod Succ/Pf 125 Mg/2 Ml Vial IVP 01/08/22 15:27 125 mg ONCE STA Administration Ondansetron HCl 4 mg 01/08/22 14:42 01/08/22 14:52 Ondansetron Hcl/Pf 4 Mg/2 Ml Sdv IVP 01/08/22 14:43 4 mg ONCE ONE Administration Vital Signs: Temp Pulse Resp BP Pulse Ox 01/08/22 14:33 97.9 F 100 H 20 174/65 H 90 L Discharge Plan Discharge Patient Disposition: PLACED OBSERVATION Discharge Problem: Hypoxemia Bilateral pneumonia Qualifiers: Pneumonia type: due to unspecified organism Lung location: unspecified part of lung Qualified Code(s): J18.9 - Pneumonia, unspecified organism UTI (urinary tract infection) Qualifiers: Urinary tract infection type: urethritis Qualified Code(s): N34.2 - Other urethritis Did you review [place] [employer]?: Not Applicable ED Provider: ADWOA MAGANA Condition: Stable <CARMENCITA HAINES MD - Last Filed: 01/08/22 18:30> Physician Progress Note: care to Dr Magana at 19:00 []
[2022-01-08 15:09] LABS: ABG O2 HGB 90.8 % (95-100); ABG PH 7.48 (7.35-7.45); BEecf 1.8 (-2.0-3.0); COHb 2.6 (0.5-1.5); HCO3 25.3 (21-28); MetHb 0.9 (0-1.5); TCO2 26.3 (19-24); sO2 92.1 % (94-98)
[2022-01-08 15:09] LABS: BASOPHILS # (AUTO) 0.1 K/uL (0-0.2); BASOPHILS % (AUTO) 0.4 % (0.0-3.0); EOSINOPHILS % (AUTO) 0.3 % (0.0-7.0); HEMATOCRIT 38.3 % (37.0-47.0); HEMOGLOBIN 12.8 g/dl (12.0-16.0); IMMATURE GRANULOCYTE # (AUTO) 0.1 (0.0-1.0); IMMATURE GRANULOCYTE % (AUTO) 0.7 % (0.0-5.0); LYMPHOCYTES % (AUTO) 17.2 (10.0-50.0); MEAN CORPUSCULAR HEMOGLOBIN 28.7 pg (27.0-31.0); MEAN CORPUSCULAR HGB CONC 33.4 (31.8-35.4); MEAN CORPUSCULAR VOLUME 85.9 fl (81.0-99.0); MONOCYTES # (AUTO) 1.3 K/uL (0.4-2.0); MONOCYTES % (AUTO) 10.9 (0-10); NEUTROPHILS # (AUTO) 8.3 K/ul (2.0-6.9); NEUTROPHILS % (AUTO) 70.5 % (42.2-75.2); PLATELET COUNT 216 10^3/uL (140-440); RDW COEFFICIENT OF VARIATION 12.8 % (11.6-14.8); RED BLOOD COUNT 4.46 10^6/ul (4.20-5.40); WHITE BLOOD COUNT 11.79 K/ul (4.6-10.2)
--- NOTE | 2022-01-08 15:15 | DI ---
EXAM: Chest one-view HISTORY: Weakness COMPARISON: None FINDINGS: Chronic interstitial changes noted in the pulmonary parenchyma. Calcified granulomas note d in the right upper lung and right hilar region. There is no obvious consolidation. Cardiac silhou ette is normal. Vascular calcifications present in the aortic arch. IMPRESSION: Chronic change in the pulmonary parenchyma with no acute cardiopulmonary process
[2022-01-08 15:24] LABS: ALANINE AMINOTRANSFERASE 20.9 U/L (0-35); ALBUMIN 3.85 g/dL (3.5-5.0); ALKALINE PHOSPHATASE 116.5 U/L (53-141); ASPARTATE AMINO TRANSFERASE 19.9 U/L (14-36); BILIRUBIN,TOTAL 0.72 mg/dL (0.2-1.3); BLOOD UREA NITROGEN 13.8 mg/dL (7-17); CALCIUM 9.61 mg/dL (8.4-10.2); CARBON DIOXIDE 27.2 mmol/L (22-30.0); CREATININE 0.78 mg/dL (0.60-1.30); GLUCOSE 227.8 mg/dL (74-106); LIPASE 41.3 U/L (23-300); POTASSIUM 3.53 mmol/L (3.5-5.1); SODIUM 137.4 mmol/L (134.5-145); TOTAL PROTEIN 7.63 g/dL (6.3-8.2)
[2022-01-08] MEDS ORDERED: SOLU-MEDROL 125 MG IVP STA (15:26)
[2022-01-08] MEDS ORDERED: VENTOLIN HFA (PER PUFF-WITH SPACER) IH ONE (15:26)
[2022-01-08 15:34] LABS: TROPONIN I 0.021 ng/ml (0.0000-0.120)
[2022-01-08 16:19] LABS: BILIRUBIN,URINE Negative (NEGATIVE); CLARITY,URINE Slightly (CLEAR); COLOR,URINE Yellow (YELLOW); GLUCOSE, URINE (UA) 2+ (NEGATIVE); KETONES,URINE 1+ (NEGATIVE); LEUKOCYTE ESTERASE ,URINE Trace (NEGATIVE); NITRITE,URINE Negative (NEGATIVE); PROTEIN,URINE 2+ (NEGATIVE); URINE, BLOOD 1+ (NEGATIVE)
[2022-01-08 16:37] LABS: BACTERIA,URINE 3+ (NOT PRESENT); GRANULAR CASTS,URINE 0-2 (NOT PRESENT); HYALINE CASTS, URINE 0-2 (NOT PRESENT)
--- NOTE | 2022-01-08 19:19 | CT ---
EXAM: CT of the abdomen and pelvis without contrast. HISTORY: Vomiting. PROCEDURE: Contiguous axial CT images of the abdomen and pelvis without contrast with coronal and sa gittal reformats. All CT scans are performed using dose optimization techniques as appropriate to a performed exam including the following: Automated exposure control, Adjustment of the mA and/or kV ac cording to patient size, Use of iterative reconstruction technique. FINDINGS: There is motion artifact which limits the exam. There is minimal bibasilar atelectasis and /or pneumonia. The liver, gallbladder, pancreas, spleen, adrenal glands and kidneys are normal in ap pearance. The abdominal aorta is within normal limits in size. There are atherosclerotic calcificat ions in the major arteries of the abdomen and pelvis. The appendix is not visualized. There is dive rticulosis of the colon with no evidence of diverticulitis. No free fluid or free air in the abdomen or pelvis. The bladder is adequately filled and normal in appearance. The uterus is surgically abs ent. There are degenerative changes in the spine. Impression: Colonic diverticulosis without diverticulitis. Atherosclerotic vascular disease. Hysterectomy. Minimal bibasilar atelectasis and/or pneumonia. All CT scans are performed using dose optimization techniques as appropriate to the performed exam an d include at least one of the following: Automated exposure control, adjustment of the mA and/or kV according t o size, and the use of iterative reconstruction technique.
[2022-01-08] MEDS ORDERED: LACTATED RINGERS 1,000 ML IV STA (19:34)
--- NOTE | 2022-01-08 21:55 | CT ---
EXAM: CT pulmonary angiogram. HISTORY: Hypoxemia. PROCEDURE: After the intravenous injection of contrast a CT pulmonary angiogram was performed with c ontiguous axial CT images of the chest with multiplanar reformats, MIP images and 3-D reformats. All CT scans are performed using dose optimization techniques as appropriate to a performed exam includi ng the following: Automated exposure control, Adjustment of the mA and/or kV according to patient siz e, Use of iterative reconstruction technique. FINDINGS: There is normal enhancement of the pulmonary arteries with no evidence of pulmonary embolis m. The heart and thoracic aorta are within normal limits in size. There are enlarged mediastinal an d hilar lymph nodes measuring up to 1.5 cm in short axis. There are bilateral infiltrates and patchy areas of consolidation, consistent with pneumonia. There are trace layering bilateral pleural effus ions. No acute findings in the visualized portion of the abdomen. There are degenerative changes in the spine. Impression: No evidence of pulmonary embolism. Bilateral pneumonia as described. Trace bilateral pleural effusions. Lymphadenopathy as described which may be reactive or neoplastic. All CT scans are performed using dose optimization techniques as appropriate to the performed exam an d include at least one of the following: Automated exposure control, adjustment of the mA and/or kV according t o size, and the use of iterative reconstruction technique.
[2022-01-08] MEDS ORDERED: LEVAQUIN 750 MG/150 ML D5W 750 MG/150 ML BAG IV STA (22:15)
[2022-01-08] MEDS ORDERED: ZOFRAN 4 MG/2 ML IVP PRN (22:38)
[2022-01-08] MEDS ORDERED: TYLENOL PO PRN (22:38)
[2022-01-08] MEDS: ZESTRIL PO SCH (23:34)
[2022-01-08] MEDS: CRESTOR PO SCH (23:34)
[2022-01-08] MEDS: NORVASC PO SCH (23:34)
[2022-01-08] MEDS: FLONASE NAS SCH (23:34)
[2022-01-08] MEDS: HUMULIN R SUBCUT PRN (23:34)
[2022-01-08] MEDS: SODIUM CHLORIDE 1,000 ML IV SCH (23:43)
[2022-01-08] MEDS: SOLU-MEDROL 125 MG IVP SCH (23:44)
[2022-01-08 23:54] VITALS: BMI 23.3
[2022-01-09] MEDS: SOLU-MEDROL 125 MG IVP SCH ×5 (00:49→23:37)
[2022-01-09 05:35] LABS: BASOPHILS % (AUTO) 0.1 % (0.0-3.0); HEMATOCRIT 31.9 % (37.0-47.0); HEMOGLOBIN 10.6 g/dl (12.0-16.0); IMMATURE GRANULOCYTE # (AUTO) 0.1 (0.0-1.0); IMMATURE GRANULOCYTE % (AUTO) 0.7 % (0.0-5.0); LYMPHOCYTES # (AUTO) 0.9 K/uL (0.60-3.4); LYMPHOCYTES % (AUTO) 11.6 (10.0-50.0); MEAN CORPUSCULAR HEMOGLOBIN 28.4 pg (27.0-31.0); MEAN CORPUSCULAR HGB CONC 33.2 (31.8-35.4); MEAN CORPUSCULAR VOLUME 85.5 fl (81.0-99.0); MONOCYTES # (AUTO) 0.3 K/uL (0.4-2.0); MONOCYTES % (AUTO) 3.5 (0-10); NEUTROPHILS # (AUTO) 6.5 K/ul (2.0-6.9); NEUTROPHILS % (AUTO) 84.1 % (42.2-75.2); PLATELET COUNT 196 10^3/uL (140-440); RDW COEFFICIENT OF VARIATION 12.7 % (11.6-14.8); RED BLOOD COUNT 3.73 10^6/ul (4.20-5.40); WHITE BLOOD COUNT 7.67 K/ul (4.6-10.2)
[2022-01-09] MEDS: DUONEB NEB SCH ×4 (05:37→20:05)
[2022-01-09 05:49] LABS: BLOOD UREA NITROGEN 14.6 mg/dL (7-17); CALCIUM 8.74 mg/dL (8.4-10.2); CARBON DIOXIDE 25.9 mmol/L (22-30.0); CHLORIDE 106.2 mmol/L (98-107); CREATININE 0.61 mg/dL (0.60-1.30); GLUCOSE 242.8 mg/dL (74-106); POTASSIUM 4.07 mmol/L (3.5-5.1); SODIUM 137.2 mmol/L (134.5-145)
[2022-01-09] MEDS: HUMULIN R SUBCUT PRN ×4 (06:17→20:19)
[2022-01-09] MEDS: SODIUM CHLORIDE 1,000 ML IV SCH ×2 (08:02→16:11)
[2022-01-09] MEDS ORDERED: MAG-OX PO ONE (08:48)
[2022-01-09] MEDS ORDERED: LEVAQUIN 500 MG/100 ML D5W 500 MG/100 ML BAG IV SCH (09:00)
[2022-01-09] MEDS: TOPROL XL PO SCH (09:40)
[2022-01-09] MEDS: ASPIRIN EC PO SCH (09:41)
[2022-01-09] MEDS: VITAMIN D PO SCH (09:41)
[2022-01-09] MEDS: CRESTOR PO SCH (09:42)
[2022-01-09] MEDS: ZESTRIL PO SCH (09:42)
[2022-01-09] MEDS: NORVASC PO SCH (09:42)
[2022-01-09] MEDS: LOVENOX SUBCUT SCH (09:43)
[2022-01-09] MEDS: FLONASE NAS SCH (10:01)
--- NOTE | 2022-01-09 10:27 | PCM.PROG ---
Date Seen by Provider: 01/09/22 Time Seen by Provider: 09:15 Subjective: Patient has no complaint. Denies chest pain or dyspnea. Objective: Vitals: T=97.4 F, P=96, R=20, OV=999/68, SPO2=96 Patient is alert and in NAD. She appears to be comfortable and is breathing easily. HEENT: [] Neck: [] Lungs: [] Decreased BS bilaterally. CVS: [] RRR. Abdomen: [] Extremities: [] No edema Neurological: [] Skin: [] Lab/Tests/Diagnostic Imaging: [] (1) Bilateral pneumonia: Status: Acute Code(s): J18.9 - Pneumonia, unspecified organism SNOMED Code(s): 519951838 Assessment: Continue IV antibiotics and nebs. (2) Hypoxemia: Status: Acute Code(s): R09.02 - Hypoxemia SNOMED Code(s): 765109288 Assessment: Supplemental oxygen. Plan: As above.
[2022-01-09] MEDS: LEVAQUIN 750 MG/150 ML D5W 750 MG/150 ML BAG IV SCH (20:18)
[2022-01-10] MEDS: SODIUM CHLORIDE 1,000 ML IV SCH ×3 (01:04→17:38)
[2022-01-10] MEDS: DUONEB NEB SCH ×4 (05:00→20:05)
[2022-01-10 05:05] LABS: BASOPHILS % (AUTO) 0.1 % (0.0-3.0); HEMATOCRIT 30.8 % (37.0-47.0); HEMOGLOBIN 10.2 g/dl (12.0-16.0); IMMATURE GRANULOCYTE # (AUTO) 0.1 (0.0-1.0); IMMATURE GRANULOCYTE % (AUTO) 0.9 % (0.0-5.0); LYMPHOCYTES # (AUTO) 0.9 K/uL (0.60-3.4); LYMPHOCYTES % (AUTO) 6.7 (10.0-50.0); MEAN CORPUSCULAR HEMOGLOBIN 28.4 pg (27.0-31.0); MEAN CORPUSCULAR HGB CONC 33.1 (31.8-35.4); MEAN CORPUSCULAR VOLUME 85.8 fl (81.0-99.0); MONOCYTES # (AUTO) 0.7 K/uL (0.4-2.0); MONOCYTES % (AUTO) 5.1 (0-10); NEUTROPHILS # (AUTO) 11.2 K/ul (2.0-6.9); NEUTROPHILS % (AUTO) 87.2 % (42.2-75.2); PLATELET COUNT 239 10^3/uL (140-440); RDW COEFFICIENT OF VARIATION 12.9 % (11.6-14.8); RED BLOOD COUNT 3.59 10^6/ul (4.20-5.40); WHITE BLOOD COUNT 12.84 K/ul (4.6-10.2)
[2022-01-10 05:15] LABS: BLOOD UREA NITROGEN 21.1 mg/dL (7-17); CALCIUM 8.8 mg/dL (8.4-10.2); CARBON DIOXIDE 23.6 mmol/L (22-30.0); CHLORIDE 110.7 mmol/L (98-107); CREATININE 0.79 mg/dL (0.60-1.30); GLUCOSE 328.1 mg/dL (74-106); POTASSIUM 3.58 mmol/L (3.5-5.1); SODIUM 141.8 mmol/L (134.5-145)
[2022-01-10] MEDS: SOLU-MEDROL 125 MG IVP SCH ×2 (05:26→20:40)
[2022-01-10] MEDS: TOPROL XL PO SCH (08:25)
[2022-01-10] MEDS: ASPIRIN EC PO SCH (08:25)
[2022-01-10] MEDS: ZESTRIL PO SCH (08:25)
[2022-01-10] MEDS: VITAMIN D PO SCH (08:25)
[2022-01-10] MEDS: FLONASE NAS SCH (08:25)
[2022-01-10] MEDS: CRESTOR PO SCH (08:25)
[2022-01-10] MEDS: HUMULIN R SUBCUT PRN ×3 (08:26→17:27)
[2022-01-10] MEDS: NORVASC PO SCH (08:26)
[2022-01-10] MEDS: LOVENOX SUBCUT SCH (08:33)
--- NOTE | 2022-01-10 12:42 | PCM.PROG ---
Date Seen by Provider: 01/10/22 Time Seen by Provider: 12:30 Subjective: Overnight / morning report : RN -pt didnt sleep weel , some "jitters " Report from Dr. Mclaughlin as morning shift change. Pt reports other mendes feeling better , was wheezing when she came in. She did not some mild hand /wrist edema new right side . No other sx Prior smoker with hx copd and DM-2 Objective: Vitals: T=97.0 F, P=98, R=20, VW=195/72, SPO2=95 HEENT: [no icterus hearing intact ] Neck: [supple ] Lungs: [clear and equally diminished bilateral ] CVS: [regular no murmur] Abdomen: [soft non- tender ] Extremities: [FROM] Neurological: [alert / oriented ] Skin: [intact no new rash ] Lab/Tests/Diagnostic Imaging: [] (1) Bilateral pneumonia: Status: Acute Code(s): J18.9 - Pneumonia, unspecified organism SNOMED Code(s): 047871392 (2) Hypoxemia: Status: Acute Code(s): R09.02 - Hypoxemia SNOMED Code(s): 875876170 (3) UTI (urinary tract infection): Status: Acute Code(s): N39.0 - Urinary tract infection, site not specified SNOMED Code(s): 31779392 (4) Diabetes mellitus due to underlying condition, uncontrolled, with hyperglycemia, without long-term current use of insulin: Status: Acute Code(s): E08.65 - Diabetes mellitus due to underlying condition with hyperglycemia SNOMED Code(s): 0128109 Plan: 1.Pneumonia - clinically improved , AM 2 view chest film, procalcitonin, cbc , BMP, HgA1C 2 Hypoxemia - improved . Initiate three - step evaluation - discussed with RT 3. UTI - on Levaquin, susceptible 4.Uncontrolled diabetes - resume metformin, deescalate steroids, on sliding scale regular insulin 5. GI - famotidine 20 mg po daily 6. DVT - lovenox 40mg SQ daily
[2022-01-10] MEDS: PEPCID PO SCH (13:55)
[2022-01-10] MEDS: FLORASTOR PO SCH (20:21)
[2022-01-10] MEDS: LEVAQUIN 750 MG/150 ML D5W 750 MG/150 ML BAG IV SCH (20:22)
[2022-01-10] MEDS ORDERED: GLUCOPHAGE PO SCH (21:00)
[2022-01-10] MEDS ORDERED: BENADRYL PO SCH (21:30)
[2022-01-11] MEDS: SODIUM CHLORIDE 1,000 ML IV SCH ×2 (02:22→11:34)
[2022-01-11] MEDS: DUONEB NEB SCH ×2 (05:00→09:15)
[2022-01-11 05:02] LABS: BASOPHILS % (AUTO) 0.2 % (0.0-3.0); HEMATOCRIT 30.7 % (37.0-47.0); HEMOGLOBIN 10.2 g/dl (12.0-16.0); IMMATURE GRANULOCYTE # (AUTO) 0.4 (0.0-1.0); IMMATURE GRANULOCYTE % (AUTO) 2.4 % (0.0-5.0); LYMPHOCYTES # (AUTO) 0.8 K/uL (0.60-3.4); MEAN CORPUSCULAR HEMOGLOBIN 28.6 pg (27.0-31.0); MEAN CORPUSCULAR HGB CONC 33.2 (31.8-35.4); MONOCYTES # (AUTO) 0.8 K/uL (0.4-2.0); MONOCYTES % (AUTO) 4.9 (0-10); NEUTROPHILS # (AUTO) 13.6 K/ul (2.0-6.9); NEUTROPHILS % (AUTO) 87.5 % (42.2-75.2); PLATELET COUNT 261 10^3/uL (140-440); RDW COEFFICIENT OF VARIATION 13.1 % (11.6-14.8); RED BLOOD COUNT 3.57 10^6/ul (4.20-5.40); WHITE BLOOD COUNT 15.56 K/ul (4.6-10.2)
[2022-01-11 05:14] LABS: BLOOD UREA NITROGEN 22.7 mg/dL (7-17); CALCIUM 8.62 mg/dL (8.4-10.2); CARBON DIOXIDE 22.9 mmol/L (22-30.0); CHLORIDE 111.3 mmol/L (98-107); CREATININE 0.86 mg/dL (0.60-1.30); GLUCOSE 293.8 mg/dL (74-106); POTASSIUM 4.04 mmol/L (3.5-5.1); SODIUM 141.6 mmol/L (134.5-145)
[2022-01-11] MEDS: PEPCID PO SCH (05:40)
[2022-01-11] MEDS ORDERED: GLUCOPHAGE PO SCH (08:30)
[2022-01-11] MEDS: TOPROL XL PO SCH (08:34)
--- NOTE | 2022-01-11 08:34 | DI ---
EXAM: CHEST RADIOGRAPH TECHNIQUE: Two views. Frontal and lateral. HISTORY: Cough. COMPARISON: 01/08/2022. FINDINGS: Calcified granulomas in both lungs. Mild left basilar atelectasis or pneumonia, worse than seen prev iously. Lungs are otherwise clear. The heart size is normal. There is calcification in the aorta consistent with atherosclerosis. No pleural effusion or pneumothorax. Old healed proximal left humerus fracture. IMPRESSION: 1. Worse appearance of the left lung base. 2. No other change from the 01/08/2022 chest radiographs.
[2022-01-11] MEDS: ASPIRIN EC PO SCH (08:35)
[2022-01-11] MEDS: ZESTRIL PO SCH (08:35)
[2022-01-11] MEDS: CRESTOR PO SCH (08:35)
[2022-01-11] MEDS: NORVASC PO SCH (08:35)
[2022-01-11] MEDS: FLORASTOR PO SCH (08:35)
[2022-01-11] MEDS: VITAMIN D PO SCH (08:35)
[2022-01-11] MEDS: LOVENOX SUBCUT SCH (08:36)
[2022-01-11] MEDS: FLONASE NAS SCH (08:36)
[2022-01-11] MEDS: HUMULIN R SUBCUT PRN ×2 (08:40→11:35)
[2022-01-11] MEDS: SOLU-MEDROL 125 MG IVP SCH (08:56)
[2022-01-11 08:59] LABS: ABG O2 HGB 94.1 % (95-100); ABG PH 7.47 (7.35-7.45); BEecf -2.6 (-2.0-3.0); COHb 1.7 (0.5-1.5); HCO3 21.1 (21-28); MetHb 0.9 (0-1.5); sO2 95.3 % (94-98); tHb 10.8 g/dl (11.7-17.4)
[2022-01-11] MEDS ORDERED: DUONEB NEB STA (09:29)
[2022-01-11] MEDS ORDERED: VANCOMYCIN 1.25 GM/250 ML BAG 1.25 GM/250 ML BAG IV ONE (09:30)
[2022-01-11 10:11] VITALS: BP 182/82; TEMP 97.8
--- NOTE | 2022-01-11 10:21 | PCM.PROG ---
Chief Complaint: cough , malaise History of Present Illness: this 76 year old /WHITE/F Ad[place] 01/08/22 22:32 [place] [facility] [place] . CTA indicated no PE , bilateral lower pneumonia. Some nodes present reactive vs neoplastic. Started on Levaquin, steroids, and nebs. On addition, a urinary culture grew klebsiella pneumoniae and was sensitive to Levaquin Review of Systems: Constitutional: Fatigue Eyes: No symptoms Ears: No symptoms Nose: No symptoms Throat: No symptoms Mouth: No symptoms Respiratory: Cough and Wheeze Cardiovascular: No symptoms Gastrointestinal: No symptoms Genitourinary: No symptoms Neurological: No symptoms Musculoskeletal: No symptoms Skin: No symptoms Immunology: No symptoms Hematology: No symptoms Endocrine: No symptoms Psychiatric: No symptoms Habits: No Tobacco use (quit yrs ago / smokes ) Past Medical History: COPD , DM, Dyslipidemia, hypertension Past Surgical History: Cardiac stent ,Hysterectomy , appendectomy Past Family History: Cardiac , diabetes Past Social History: prior smoker 17 yrs ago Physical Examination: Vitals: Temperature 97.8 F, Pulse 109, Respirations 24, Blood Pressure 182/82, SPO2 95 Body Measurements: Height 5 ft 7 in, Weight 149 lb, BMI 23.3-Normal Allergies Allergy/AdvReac Type Severity Reaction Status Date / Time Penicillins AdvReac SOB rash Verified 01/08/22 13:25 nausea Medications: Medications Generic Name Dose Route Start Last Admin Trade Name Freq PRN Reason Stop Dose Admin Acetaminophen 650 mg 01/08/22 22:38 Acetaminophen 325 Mg Tablet PO Q4H PRN Fever and Mild Pain Albuterol/Ipratropium 3 ml 01/09/22 06:00 01/11/22 09:15 Ipratropium/Albuterol Vial.Neb NEB 3 ml RTQID ETHAN Administration Amlodipine Besylate 5 mg 01/08/22 23:00 01/11/22 08:35 Amlodipine Besylate 5 Mg Tablet PO 5 mg DAILY ETHAN Administration Aspirin 81 mg 01/09/22 08:30 01/11/22 08:35 Aspirin 81 Mg Tablet. PO 81 mg DAILYWM ETHAN Administration Cholecalciferol 1,000 unit 01/09/22 09:00 01/11/22 08:35 Cholecalciferol (Vitamin D3) 1,000 Unit (25 Mcg) Tablet PO 1,000 unit DAILY ETHAN Administration Diphenhydramine HCl 25 mg 01/10/22 21:30 01/10/22 21:42 Diphenhydramine Hcl 25 Mg Capsule PO 25 mg BEDTIME ETHAN Administration Enoxaparin Sodium 40 mg 01/09/22 09:00 01/11/22 08:36 Enoxaparin Sodium 40 Mg/0.4 Ml Syr SUBCUT 40 mg DAILY ETHAN Administration Famotidine 20 mg 01/10/22 13:30 01/11/22 05:40 Famotidine 20 Mg Tablet PO 20 mg QDAC ETHAN Administration Fluticasone Propionate 2 spray 01/08/22 23:00 01/11/22 08:36 Fluticasone Propionate 16 Gm Nasal [place] NATALY 2 spray DAILY ETHAN Administration Sodium Chloride 1,000 mls @ 125 mls/hr 01/08/22 23:00 01/11/22 02:22 Sodium Chloride IV 125 mls/hr .Q8H ETHAN Administration Levofloxacin/Dextrose 750 mg in 150 mls @ 100 mls/hr 01/09/22 21:00 01/10/22 20:22 Levaquin 750 Mg/150 Ml D5w IV 01/12/22 20:59 100 mls/hr BEDTIME ETHAN Administration VANCOMYCIN/WATER FOR INJ (PEG) 1.25 gm in 250 mls @ 250 mls/hr 01/11/22 09:30 01/11/22 09:48 Vancomycin 1.25 Gm/250 Ml Bag IV 01/11/22 10:29 250 mls/hr ONCE ONE Administration VANCOMYCIN/WATER FOR INJ (PEG) 750 mg in 150 mls @ 150 mls/hr 01/11/22 21:00 Vancomycin 750 Mg/150 Ml Bag IV 01/14/22 20:59 Q12HR [facility] Insulin Human Regular 0 unit 01/08/22 22:43 01/11/22 08:40 Insulin Regular, Human 100 Unit/Ml (3ml) Vial SUBCUT 6 unit PRN PRN Administration Hyperglycemia Protocol Lisinopril 10 mg 01/08/22 23:00 01/11/22 08:35 Lisinopril 10 Mg Tablet PO 10 mg DAILY ETHAN Administration Metformin HCl 1,000 mg 01/11/22 08:30 01/11/22 08:34 Metformin Hcl 500 Mg Tablet PO 1,000 mg BIDWM ETHAN Administration Methylprednisolone Sodium Succinate 80 mg 01/10/22 21:00 01/11/22 08:56 Methylprednisolone Sod Succ/Pf 125 Mg/2 Ml Vial IVP 80 mg Q12HR ETHAN Administration Metoprolol Succinate 25 mg 01/09/22 09:00 01/11/22 08:34 Metoprolol Succinate 25 Mg Tab.Er.24h PO 25 mg DAILY ETHAN Administration Ondansetron HCl 4 mg 01/08/22 22:38 Ondansetron Hcl/Pf 4 Mg/2 Ml Sdv IVP Q6H PRN Nausea / Vomiting Rosuvastatin Calcium 10 mg 01/08/22 23:00 01/11/22 08:35 Rosuvastatin Calcium 10 Mg Tablet PO 10 mg DAILY ETHAN Administration Saccharomyces Boulardii 250 mg 01/10/22 21:00 01/11/22 08:35 Saccharomyces Boulardii 250 Mg Capsule PO 250 mg BID ETHAN Administration Lab/Tests/Diagnostic Imaging: chest film this am suggests worsening LLL WBC elevated to 15.6, yesterday 12.8 K this am , Procal 0.09 ABG on 2.5 LMP n/c: pH 7.47, po2-72, pco2 -29,Sat 95 Hco3 21 Na 141,Chl 111,K 4,glu 292 Progress Note: Pt was feeling well yesterday and lungs were clear and no wheeezing. as she was improving , steroids were deescalated to 80mg IV q12hrs. This am she has desat with activity , wheeze and diminished breath sounds posterior left lower lobe ASSESSMENT: Please see below. (1) Bilateral pneumonia: Status: Acute Code(s): J18.9 - Pneumonia, unspecified organism SNOMED Code(s): 021909790 (2) Hypoxemia: Status: Acute Code(s): R09.02 - Hypoxemia SNOMED Code(s): 542035428 (3) UTI (urinary tract infection): Status: Acute Code(s): N39.0 - Urinary tract infection, site not specified SNOMED Code(s): 16877295 (4) Diabetes mellitus due to underlying condition, uncontrolled, with hyperglycemia, without long-term current use of insulin: Status: Acute Code(s): E08.65 - Diabetes mellitus due to underlying condition with hyperglycemia SNOMED Code(s): 4845232 Recommendations/Plan: 1. Patient on morning rounds has had a change since yesterday. She rports wheerzing , malaise 2 She has an elevated WBC ( from steroids , infection , or both ?) 3She has a worsening LLL infiltrate Discussed with pt and with permission her son at the bedside - will contact [facility] for request to [facility] where higher level of services avaialble including pulmonology. I spoke with Dr Porter and gave an SBAR report - no changes suggested at this time I spoke with Dr Bond - no further changes at this time Bed accepted 1015 EMS called 1050 Note I had ordered an additional panel of labs . The specimen had to be redrawn. Patient declined. [facility] Medical History Diabetes mellitus Diabetes mellitus type 2, controlled, without complications Dyslipidemia Encounter to discuss test results Hyperlipidemia Hyperlipidemia Hypertension Hypertriglyceridemia Needs flu shot Sinusitis Upper respiratory infection, viral Family History BROTHER Diabetes Heart attack Hypertension SISTER Diabetes Heart attack Hypertension Mother Diabetes Heart attack Hypertension FATHER Heart attack Hypertension Social History Smoking and tobacco status: Former smoker Passive smoking exposure: No How long ago did patient quit smokin years ago Second hand smoke exposure: No Smoking risk assessment performed: No Substance use type: does not use Counseling given: No Krysta/jewish: [employer] Special krysta needs: No Agree to transfusion: Yes Household members: spouse Marital status: M Lives independently: Yes Daycare: no daycare Number of children: 8 Number of grandchildren: 5 Current occupational status: employed Sexually active: Yes Do you think of yourself as: straight/heterosexual Current gender identity: female Seatbelt use: always Surgical History History of heart artery stent Status post appendectomy Status post hysterectomy Female Reproductive History Menstrual Hx Hysterectomy: Yes Hx Tubal Ligation: No
--- NOTE | 2022-01-11 10:58 | PCM.PROG ---
Date Seen by Provider: 01/11/22 Time Seen by Provider: 10:00 Subjective: Some shortness of breath with exertion , no edema , no chest pain , no sputum Objective: Vitals: T=97.8 F, P=109, R=24, AW=990/82, SPO2=95 HEENT: [no icterus ] Neck: [supple ] Lungs: [wheeze / diminished LLB posterior ] CVS: [regualr no cp ] Abdomen: [non tender ] Extremities: [FROM] Neurological: [intact ] Skin: [no rash ] Lab/Tests/Diagnostic Imaging: [ WBC elevated from 12 yesterday to 15 today Procal 0.09 ABG primary resp alkalosis ,chronic,with secondary metabolic alkalosis Chest film increased infiltrate LLL ] (1) Bilateral pneumonia: Status: Acute Code(s): J18.9 - Pneumonia, unspecified organism SNOMED Code(s): 534275363 (2) Hypoxemia: Status: Acute Code(s): R09.02 - Hypoxemia SNOMED Code(s): 917970235 (3) UTI (urinary tract infection): Status: Acute Code(s): N39.0 - Urinary tract infection, site not specified SNOMED Code(s): 74318862 (4) Diabetes mellitus due to underlying condition, uncontrolled, with hyperglycemia, without long-term current use of insulin: Status: Acute Code(s): E08.65 - Diabetes mellitus due to underlying condition with hyperglycemia SNOMED Code(s): 1962231 Plan: With change from yesterday and increased LLL infiltrate , will add blood cultur es and Vancomycin for additional coverage Duoneb Discussed with Pt and son with permission - will discuss with [employer] application support technician Pulmonary - Dr Porter - no changes will consult Dr Bond - no changes will accept full admit Transfer by ALS
[2022-01-11] MEDS ORDERED: VANCOMYCIN 750 MG/150 ML BAG 750 MG/150 ML BAG IV SCH (21:00)
--- NOTE | 2022-02-02 13:06 | DS ---
DATE OF SERVICE: 01/11/22 Chief Complaint: cough , malaise History of Present Illness: this 76 year old /WHITE/F [place] 01/08/22 22:32 [place] [facility] [place] . CTA indicated no PE , bilateral lower pneumonia. Some nodes present reactive vs neoplastic. Started on Levaquin, steroids, and nebs. On addition, a urinary culture grew klebsiella pneumoniae and was sensitive to Levaquin Review of Systems: Constitutional: Fatigue Eyes: No symptoms Ears: No symptoms Nose: No symptoms Throat: No symptoms Mouth: No symptoms Respiratory: Cough and Wheeze Cardiovascular: No symptoms Gastrointestinal: No symptoms Genitourinary: No symptoms Neurological: No symptoms Musculoskeletal: No symptoms Skin: No symptoms Immunology: No symptoms Hematology: No symptoms Endocrine: No symptoms Psychiatric: No symptoms Habits: No Tobacco use (quit yrs ago / smokes ) Past Medical History: COPD , DM, Dyslipidemia, hypertension Past Surgical History: Cardiac stent ,Hysterectomy , appendectomy Past Family History: Cardiac , diabetes Past Social History: prior smoker 17 yrs ago Physical Examination: Vitals: Temperature 97.8 F, Pulse 109, Respirations 24, Blood Pressure 182/82, SPO2 95 Body Measurements: Height 5 ft 7 in, Weight 149 lb, BMI 23.3-Normal Allergies Allergy/AdvReac Type Severity Reaction Status Date / Time Penicillins AdvReac SOB rash Verified 01/08/22 13:25 nausea Medications: Medications Generic Name Dose Route Start Last Admin Trade Name Freq PRN Reason Stop Dose Admin Acetaminophen 650 mg 01/08/22 22:38 Acetaminophen 325 Mg Tablet PO Q4H PRN Fever and Mild Pain Albuterol/Ipratropium 3 ml 01/09/22 06:00 01/11/22 09:15 Ipratropium/Albuterol Vial.Neb NEB 3 ml RTQID ETHAN Administration Amlodipine Besylate 5 mg 01/08/22 23:00 01/11/22 08:35 Amlodipine Besylate 5 Mg Tablet PO 5 mg DAILY ETHAN Administration Aspirin 81 mg 01/09/22 08:30 01/11/22 08:35 Aspirin 81 Mg Tablet. PO 81 mg DAILYWM ETHAN Administration Cholecalciferol 1,000 unit 01/09/22 09:00 01/11/22 08:35 Cholecalciferol (Vitamin D3) 1,000 Unit (25 Mcg) Tablet PO 1,000 unit DAILY ETHAN Administration Diphenhydramine HCl 25 mg 01/10/22 21:30 01/10/22 21:42 Diphenhydramine Hcl 25 Mg Capsule PO 25 mg BEDTIME ETHAN Administration Enoxaparin Sodium 40 mg 01/09/22 09:00 01/11/22 08:36 Enoxaparin Sodium 40 Mg/0.4 Ml Syr SUBCUT 40 mg DAILY ETHAN Administration Famotidine 20 mg 01/10/22 13:30 01/11/22 05:40 Famotidine 20 Mg Tablet PO 20 mg QDAC ETHAN Administration Fluticasone Propionate 2 spray 01/08/22 23:00 01/11/22 08:36 Fluticasone Propionate 16 Gm Nasal [place] NATALY 2 spray DAILY ETHAN Administration Sodium Chloride 1,000 mls @ 125 mls/hr 01/08/22 23:00 01/11/22 02:22 Sodium Chloride IV 125 mls/hr .Q8H ETHAN Administration Levofloxacin/Dextrose 750 mg in 150 mls @ 100 mls/hr 01/09/22 21:00 01/10/22 20:22 Levaquin 750 Mg/150 Ml D5w IV 01/12/22 20:59 100 mls/hr BEDTIME ETHAN Administration VANCOMYCIN/WATER FOR INJ (PEG) 1.25 gm in 250 mls @ 250 mls/hr 01/11/22 09:30 01/11/22 09:48 Vancomycin 1.25 Gm/250 Ml Bag IV 01/11/22 10:29 250 mls/hr ONCE ONE Administration VANCOMYCIN/WATER FOR INJ (PEG) 750 mg in 150 mls @ 150 mls/hr 01/11/22 21:00 Vancomycin 750 Mg/150 Ml Bag IV 01/14/22 20:59 Q12HR [facility] Insulin Human Regular 0 unit 01/08/22 22:43 01/11/22 08:40 Insulin Regular, Human 100 Unit/Ml (3ml) Vial SUBCUT 6 unit PRN PRN Administration Hyperglycemia Protocol Lisinopril 10 mg 01/08/22 23:00 01/11/22 08:35 Lisinopril 10 Mg Tablet PO 10 mg DAILY ETHAN Administration Metformin HCl 1,000 mg 01/11/22 08:30 01/11/22 08:34 Metformin Hcl 500 Mg Tablet PO 1,000 mg BIDWM ETHAN Administration Methylprednisolone Sodium Succinate 80 mg 01/10/22 21:00 01/11/22 08:56 Methylprednisolone Sod Succ/Pf 125 Mg/2 Ml Vial IVP 80 mg Q12HR ETHAN Administration Metoprolol Succinate 25 mg 01/09/22 09:00 01/11/22 08:34 Metoprolol Succinate 25 Mg Tab.Er.24h PO 25 mg DAILY ETHAN Administration Ondansetron HCl 4 mg 01/08/22 22:38 Ondansetron Hcl/Pf 4 Mg/2 Ml Sdv IVP Q6H PRN Nausea / Vomiting Rosuvastatin Calcium 10 mg 01/08/22 23:00 01/11/22 08:35 Rosuvastatin Calcium 10 Mg Tablet PO 10 mg DAILY ETHAN Administration Saccharomyces Boulardii 250 mg 01/10/22 21:00 01/11/22 08:35 Saccharomyces Boulardii 250 Mg Capsule PO 250 mg BID ETHAN Administration Lab/Tests/Diagnostic Imaging: chest film this am suggests worsening LLL WBC elevated to 15.6, yesterday 12.8 K this am , Procal 0.09 ABG on 2.5 LMP n/c: pH 7.47, po2-72, pco2 -29,Sat 95 Hco3 21 Na 141,Chl 111,K 4,glu 292 Progress Note: Pt was feeling well yesterday and lungs were clear and no wheeezing. as she was improving , steroids were deescalated to 80mg IV q12hrs. This am she has desat with activity , wheeze and diminished breath sounds posterior left lower lobe ASSESSMENT: Please see below. (1) Bilateral pneumonia: Status: Acute Code(s): J18.9 - Pneumonia, unspecified organism SNOMED Code(s): 938324022 (2) Hypoxemia: Status: Acute Code(s): R09.02 - Hypoxemia SNOMED Code(s): 791922881 (3) UTI (urinary tract infection): Status: Acute Code(s): N39.0 - Urinary tract infection, site not specified SNOMED Code(s): 80245269 (4) Diabetes mellitus due to underlying condition, uncontrolled, with hyperglycemia, without long-term current use of insulin: Status: Acute Code(s): E08.65 - Diabetes mellitus due to underlying condition with hyperglycemia SNOMED Code(s): 8879709 Recommendations/Plan: 1. Patient on morning rounds has had a change since yesterday. She rports wheerzing , malaise 2 She has an elevated WBC ( from steroids , infection , or both ?) 3She has a worsening LLL infiltrate Discussed with pt and with permission her son at the bedside - will contact [facility] for request to [facility] where higher level of services avaialble including pulmonology. I spoke with Dr Porter and gave an SBAR report - no changes suggested at this time I spoke with Dr Bond - no further changes at this time Bed accepted 1015 EMS called 1050 Note I had ordered an additional panel of labs . The specimen had to be redrawn. Patient declined. [facility] Medical History Diabetes mellitus Diabetes mellitus type 2, controlled, without complications Dyslipidemia Encounter to discuss test results Hyperlipidemia Hyperlipidemia Hypertension Hypertriglyceridemia Needs flu shot Sinusitis Upper respiratory infection, viral Family History BROTHER Diabetes Heart attack Hypertension SISTER Diabetes Heart attack Hypertension Mother Diabetes Heart attack Hypertension FATHER Heart attack Hypertension Social History Smoking and tobacco status: Former smoker Passive smoking exposure: No How long ago did patient quit smokin years ago Second hand smoke exposure: No Smoking risk assessment performed: No Substance use type: does not use Counseling given: No Krysta/episcopalian: [employer] Special krysta needs: No Agree to transfusion: Yes Household members: spouse Marital status: M Lives independently: Yes Daycare: no daycare Number of children: 8 Number of grandchildren: 5 Current occupational status: employed Sexually active: Yes Do you think of yourself as: straight/heterosexual Current gender identity: female Seatbelt use: always Surgical History History of heart artery stent Status post appendectomy Status post hysterectomy Female Reproductive History Menstrual Hx Hysterectomy: Yes Hx Tubal Ligation: No MTDD
== END 2022-01-11 11:45 | disposition short-term general hospital (02) ==
LOC: MEDSURG A 14:32 → ED 14:32 → MEDSURG A 23:00
PROVIDERS: ADMIT Internal Medicine Geriatric Medicine; ATTEND Emergency Medicine
DX: Z51.81 Encounter for therapeutic drug level monitoring; E11.65 Type 2 diabetes mellitus with hyperglycemia; E08.65 Diabetes mellitus due to underlying condition with hyperglycemia; Z99.81 Dependence on supplemental oxygen; Z20.822 Contact with and (suspected) exposure to COVID-19; Z79.82 Long term (current) use of aspirin; R22.31 Localized swelling, mass and lump, right upper limb; Z79.899 Other long term (current) drug therapy; J18.9 Pneumonia, unspecified organism; N39.0 Urinary tract infection, site not specified; Z79.84 Long term (current) use of oral hypoglycemic drugs; R09.02 Hypoxemia